=== PATIENT | male | born 2000 | race Caucasian/White ===

== ENCOUNTER 2019-08-21 08:34 | Outpatient (CLI) | payer BC, SELFPAY ==
[2019-08-22 10:36] LABS: COVID-19 RT-PCR UVMMC Result Negative (Negative)
== END 2019-08-21 08:54 ==
PROVIDERS: PCP Pediatrics; Visit Provider Pediatrics
DX: R50.9 Fever, unspecified (principal)
CPT/HCPCS: U0003

== ENCOUNTER 2022-06-25 11:00 | Outpatient (REF) | payer BC, SELFPAY | END 2022-06-25 11:01 | disposition home or self-care (01) | LOC: LBN 11:00 | PROVIDERS: Visit Provider Nurse Practitioner Family | DX: J02.9 Acute pharyngitis, unspecified (principal) | CPT/HCPCS: 87081 ==